=== PATIENT | female | born 1940 | race Caucasian/White ===

== ENCOUNTER → 2019-08-04 | Outpatient (CLI) | payer MEDICARE, OTHER ==
--- NOTE | 2019-08-04 17:46 | Diagnostic Imaging Report ---
INDICATION: Left knee pain, twisted one month ago and is not getting better. FINDINGS: Three views of the left knee demonstrate normal ossification. No fracture, dislocation, or joint effusion is seen. IMPRESSION: Normal left knee. Dictated by: Dictated on workstation # [id number]
== END ==
LOC: RAD 14:20
PROVIDERS: ATTEND Nurse Practitioner Family
DX: M25.562 Pain in left knee (principal)
CPT/HCPCS: 73562